=== PATIENT | female | born 1975 | race Caucasian/White ===

== ENCOUNTER → 2016-11-01 | Outpatient (CLI) | payer BC ==
[~2016-11-01] MED LIST: ALBINS/ INH; FEXO1TAB49 PO; FLNIN NAE; IPRA1AER2 INH; LEVO150T PO; LEVO175T3 PO; LORA-741 PO; MELO7.5T6 PO; METF-382 PO; MONT1TAB3 PO; OXYB10TA PO
== END | disposition home or self-care (01) ==
LOC: C.PAPS 12:23
PROVIDERS: ATTEND Obstetrics & Gynecology
DX: Z01.419 Encounter for gynecological examination (general) (routine) without abnormal findings (principal)

== ENCOUNTER → 2016-11-04 | Day surgery (SDC) | payer BC ==
[2016-10-25 13:39] VITALS: Ht 168.9 cm; Wt 77.3 kg
[~2016-11-04] VITALS: Ht 168.9 cm; Wt 77.3 kg
[~2016-11-04] MED LIST changes: +BUPIVACAINE 0.25% 2.5MG/ML PF 10 ML VIAL INFIL ONE; +LIDOCAINE HCL 1% MPF 5 ML VIAL ONE
--- NOTE | 2016-11-04 13:07 | History & Physical Bridge - [place] ---
H&P Re-Evaluation Bridge Note: I have examined the patient, reviewed the History & Physical and in the interval since the performance of the History & Physical I have noted the following changes of clinical significance: No changes noted
--- NOTE | 2016-11-04 13:52 | Discharge Instructions ---
Discharge Instructions Visit Reason for Visit: Low Back Pain Discharge Discharge Diagnosis / Problem: low back pain Discharge Goals Goal(s): Decrease discomfort, Improve function Activity Recommendations Activity Limitations: resume your previous activity Anesthesia . Post Anesthesia Instructions: If you have had General Anesthesia or IV Sedation: * Do not drive today. * Resume driving when surgeon permits. * Do not make important decisions or sign legal documents today. * Call surgeon for: 1. Temperature elevations greater than 101 degrees F. 2. Uncontrollable pain. 3. Excessive bleeding. 4. Persistent nausea and vomiting. 5. Medication intolerance (nausea, vomiting or rash). * For nausea and vomiting use only clear liquids such as: tea, soda, bouillon until nausea subsides, then gradually increase diet as tolerated. * If you have any concerns or questions, call your surgeon's office. If physician is unavailable and it is an emergency, call 911 or go to the nearest emergency room. . Diet Recommendations Recommended Home Diet: resume previous diet Procedures Procedures Performed: Right L5-S1 Radio Frequency Denervation Pending Studies Studies pending at discharge: no Medical Emergencies . Who to Call and When: Medical Emergencies: If at any time you feel your situation is an emergency, please call 911 immediately. . Non-Emergent Contact Non-Emergency issues call your: Specialist . . "Provider Documentation" section prepared by Twin Carlin.
[2016-11-04 13:58] VITALS: BP 151/93; PULSE 92; O2SAT 98
--- NOTE | 2016-11-04 15:41 | OPERATIVE REPORT ---
DATE OF OPERATION: 11/04/2016 PREOPERATIVE DIAGNOSIS: Right L5-S1 facet arthropathy with chronic low back pain. POSTOPERATIVE DIAGNOSIS: Same. PROCEDURE: Right L5-S1 radiofrequency denervation. SURGEON: Dr. Twin Carlin. INDICATIONS: The patient is a 41-year-old white female who has had a series of 2 successful medial branch blocks done to this area with overall pain improvements of 70%. She presents today for denervation to provide her with a longer lasting relief of pain in this area and region. PHYSICAL EXAMINATION: GENERAL: Pleasant female seated comfortably. MUSCULOSKELETAL: Lumbar paraspinal muscles were palpated and noted be nontender. She had some mild discomfort to palpation in the right L5-S1 facet area which was worse with extension and rotation. She had normal motor and sensory examinations of her lower extremities. CONSENT: Verbal and written consent was obtained from the patient. Risks and benefits were reviewed. Risks include but are not limited to abscess, allergic reaction and denervation. She wishes to proceed. PROCEDURE: The patient was taken back to the special procedures room of the [facility] where she was maintained in a prone position. Backside was cleansed with Betadine x3 and a dry sterile dressing was applied. Fluoroscope was used to identify the right L5 transverse process junction and the right sacral ala. The overlying skin on both of these sites was anesthetized with 2.5 mL of lidocaine 1% with a 25 gauge 1.5-inch needle. She then underwent placement of a 22 gauge 10 cm Herber needle contacting the bony target at each area. Sensory stimulation was done at both sites noted to reproduce familiar pain and discomfort in the back at a threshold of 0.2 volts at both sites. Motor stimulation did not provoke any radiating pain or movement of the lower extremities but just robust paraspinal spasms. She then underwent anesthetization with 1 mL lidocaine 1% at both sites and then underwent denervation 100 seconds, 80 degrees x2 at each site and then this was followed by bupivacaine 0.25% 1 mL at each site. The procedure was well tolerated. DISPOSITION: 1. The patient is taken out into the discharge recovery area where she will be discharged home once discharge criteria have been met. 2. Follow up in the [facility] office in 2-4 weeks. I attest to the content of the Intraoperative Record and any orders documented therein. Any exceptio ns are noted below.
== END | disposition home or self-care (01) ==
LOC: X.SURG 12:16
PROVIDERS: ATTEND Physical Medicine & Rehabilitation
DX: M46.96 Unspecified inflammatory spondylopathy, lumbar region (principal); M54.5 Low back pain

== ENCOUNTER → 2016-12-31 | Outpatient (CLI) | payer BC ==
[~2016-12-31] MED LIST changes: -BUPIVACAINE 0.25% 2.5MG/ML PF 10 ML VIAL INFIL ONE; -LIDOCAINE HCL 1% MPF 5 ML VIAL ONE
--- NOTE | 2016-12-31 15:35 | MAMMOGRAPHY REPORT ---
BILATERAL DIGITAL SCREENING MAMMOGRAM TOMOSYNTHESIS WITH CAD: 12/31/2016 CLINICAL HISTORY: Routine screening. Patient has no complaints. TECHNIQUE: Breast tomosynthesis in addition to standard 2D mammography was performed. Current study was also evaluated with a Computer Aided Detection (CAD) system. COMPARISON: Comparison is made to exams dated: 07/31/2014 ultrasound, 07/31/2014 mammogram, 06/12/2014 ultrasound, and 06/12/2014 mammogram - [facility]. BREAST COMPOSITION: There are scattered areas of fibroglandular density in both breasts. FINDINGS: No suspicious masses, calcifications, or areas of architectural distortion are noted in e ither breast. There has been no significant interval change compared to prior exams. IMPRESSION: ACR BI-RADS CATEGORY 1: NEGATIVE There is no mammographic evidence of malignancy. A 1 year screening mammogram is recommended. The p atient will receive written notification of the results. Approximately 10% of breast cancers are not detected with mammography. A negative mammographic repor t should not delay biopsy if a clinically suggestive mass is present. Shannon Tuttle M.D. ah/:12/31/2016 15:06:47 Lacquer Shader: Shikha Busby RT(R)(M), [facility] letter sent: Normal 1/2 BI-RADS Code: ACR BI-RADS Category 1: Negative
== END | disposition home or self-care (01) ==
LOC: C.MAMM 09:49
PROVIDERS: ATTEND Obstetrics & Gynecology
DX: Z12.31 Encounter for screening mammogram for malignant neoplasm of breast (principal)

== ENCOUNTER → 2017-01-03 | Outpatient (CLI) | payer BC ==
--- NOTE | 2017-01-03 10:07 | DIAGNOSTIC IMAGING REPORT ---
RIGHT SHOULDER 3 VIEWS HISTORY: RIGHT SHOULDER PAIN Right COMPARISON: None. FINDINGS: There is no fracture or dislocation. Soft tissues are unremarkable. No radiopaque foreign bodies. The right clavicle is intact. Tiny ossific density adjacent to the coracoid process is of doubtful clinical significance. Cartilage spaces are maintained for age. IMPRESSION: No fracture or dislocation within the right shoulder. Electronically signed by: Michael Bruce M.D. 01/03/2017 10:04 AM Dictated Date/Time: 01/03/2017 10:03 AM
== END | disposition home or self-care (01) ==
LOC: C.RDSM 09:25
PROVIDERS: ATTEND Physician Assistant
DX: M25.511 Pain in right shoulder (principal)

== ENCOUNTER → 2017-02-15 | Outpatient (CLI) | payer BC ==
[2017-02-15 18:26] LABS: LYME DISEASE AB IGG POS (NEG); LYME DISEASE AB IGM POS (NEG)
[2017-02-20 23:28] LABS: 18KDIGG BAND NONREACTIVE (NONREACTIVE); 23KDIGG BAND REACTIVE (NONREACTIVE); 23KDIGM BAND REACTIVE (NONREACTIVE); 28KDIGG BAND NONREACTIVE (NONREACTIVE); 30KDIGG BAND NONREACTIVE (NONREACTIVE); 39KDIGG BAND NONREACTIVE (NONREACTIVE); 39KDIGM BAND NONREACTIVE (NONREACTIVE); 41KDIGG BAND REACTIVE (NONREACTIVE); 41KDIGM BAND REACTIVE (NONREACTIVE); 45KDIGG BAND REACTIVE (NONREACTIVE); 58KDIGG BAND REACTIVE (NONREACTIVE); 66KDIGG BAND NONREACTIVE (NONREACTIVE); 93KDIGG BAND NONREACTIVE (NONREACTIVE)
== END | disposition home or self-care (01) ==
LOC: C.LAB1850 13:55
PROVIDERS: ATTEND Internal Medicine Infectious Disease
DX: L03.115 Cellulitis of right lower limb (principal)

== ENCOUNTER → 2017-05-12 | Outpatient (CLI) | payer BC ==
[2017-05-12 17:43] LABS: BASO % 0.4 %; BASO ABS # 0.03 K/uL (0-0.2); COMPLETE YES; HEMATOCRIT 38.9 % (37-47); IG% 0.3 %; LYMPH % 29.9 %; LYMPH ABS # 2.29 K/uL (1.2-3.4); MEAN CELL VOLUME 79.7 fL (80-100); MEAN CORPUSCULAR HEMOGLOBIN 25.8 pg (25-34); MEAN CORPUSCULAR HGB CONC 32.4 g/dl (32-36); MEAN PLATELET VOLUME 9.6 fL (7.4-10.4); MONO % 5.3 %; NEUT % 62.1 %; PLATELET COUNT 281 K/uL (130-400); RED BLOOD COUNT 4.88 M/uL (4.2-5.4); WHITE BLOOD COUNT 7.67 K/uL (4.8-10.8)
[2017-05-12 18:09] LABS: BLOOD UREA NITROGEN 10 mg/dl (7-18); CALCIUM 9.3 mg/dl (8.5-10.1); CARBON DIOXIDE 28 mmol/L (21-32); CHLORIDE 104 mmol/L (98-107); CREATININE 0.68 mg/dl (0.60-1.20); GLUCOSE 99 mg/dl (70-99); POTASSIUM 3.9 mmol/L (3.5-5.1); SODIUM 139 mmol/L (136-145)
[2017-05-12 20:52] LABS: LYME DISEASE AB IGM NEG (NEG)
[2017-05-12 20:53] LABS: LYME DISEASE AB IGG POS (NEG)
[2017-05-17 21:22] LABS: 18KDIGG BAND NONREACTIVE (NONREACTIVE); 23KDIGG BAND REACTIVE (NONREACTIVE); 23KDIGM BAND REACTIVE (NONREACTIVE); 28KDIGG BAND NONREACTIVE (NONREACTIVE); 30KDIGG BAND NONREACTIVE (NONREACTIVE); 39KDIGG BAND REACTIVE (NONREACTIVE); 39KDIGM BAND NONREACTIVE (NONREACTIVE); 41KDIGG BAND REACTIVE (NONREACTIVE); 41KDIGM BAND REACTIVE (NONREACTIVE); 45KDIGG BAND REACTIVE (NONREACTIVE); 58KDIGG BAND REACTIVE (NONREACTIVE); 66KDIGG BAND NONREACTIVE (NONREACTIVE); 93KDIGG BAND NONREACTIVE (NONREACTIVE)
== END | disposition home or self-care (01) ==
LOC: C.LAB1850 16:39
PROVIDERS: ATTEND Nurse Practitioner Adult Health
DX: H02.401 Unspecified ptosis of right eyelid (principal)

== ENCOUNTER → 2017-05-25 | Outpatient (CLI) | payer BC ==
[~2017-05-25] MED LIST changes: +ACETAMINOPHEN 500 MG TAB PO ONE
--- NOTE | 2017-05-25 09:00 | DIAGNOSTIC IMAGING REPORT ---
BRAIN WITHOUT CONTRAST HISTORY: 42 years-old Female DROOPY EYELID RT, NEUROLOGIC IMPAIRMENT history of Lyme disease. COMPARISON: MRI brain 01/30/2015 TECHNIQUE: Multiplanar multisequence MRI of the brain was obtained without contrast. FINDINGS: Large [id number] images demonstrate no gross abnormality of the head or neck. There is no restricted diffusion to suggest acute ischemia. The midline structures including the corpus callosum, optic chiasm, pituitary gland, infundibulum, pineal gland and brainstem are unremarkable. There is no cerebellar tonsillar herniation. Mild uncovertebral spurring and facet arthrosis is seen within the imaged upper cervical spine, notably at C3-C4 on the right. No pathologic Blooming artifact seen on the gradient echo series to suggest hemorrhage. There is no acute intracranial hemorrhage, midline shift, hydrocephalus, intracranial mass or abnormal extra-axial collections. No focal abnormal T2/FLAIR signal. The flow voids at the level of the skull base appear patent. Mastoid air cells and middle ear cavities are clear. Orbits are symmetric. Minimal mucosal thickening of the ethmoid air cells is present. Calvarium and soft tissues are unremarkable. IMPRESSION: 1. No acute intracranial abnormality. No restricted diffusion. 2. If of further clinical concern for facial nerve neuritis to correlate with the patient's reported symptomatology, thin section MR images of the posterior fossa with and without IV contrast may be considered. The above report was generated using voice recognition software. It may contain grammatical, syntax or spelling errors. Electronically signed by: Miki Rosado M.D. 05/25/2017 8:59 AM Dictated Date/Time: 05/25/2017 8:52 AM
== END | disposition home or self-care (01) ==
LOC: C.MRI 07:55
PROVIDERS: ATTEND Nurse Practitioner Adult Health
DX: G96.9 Disorder of central nervous system, unspecified (principal); H02.401 Unspecified ptosis of right eyelid

== ENCOUNTER 2017-06-10 07:37 | Day surgery (SDC) | payer BC ==
[2017-06-10] VITALS (10 sets, daily range): BP systolic 109–144; BP diastolic 65–81; PULSE 68–93; TEMP 36.6–36.8; O2SAT 96–99; Ht 168.9 cm; Wt 77.0 kg
[~2017-06-10] VITALS: Ht 168.9 cm; Wt 77.0 kg
[~2017-06-10 07:37] MED LIST changes: -ACETAMINOPHEN 500 MG TAB PO ONE; -LEVO150T PO
[2017-06-10] MEDS ORDERED: LEVO150T PO (08:25)
[2017-06-10] MEDS ORDERED: ACETAMINOPHEN 500 MG TAB PO PRN (09:45)
--- NOTE | 2017-06-10 09:45 | Discharge Instructions ---
Discharge Instructions Procedure Procedure Date: Jun 10, 2017. Reason for visit: Lymes, Drooping Rt Eyelid, Neuro Impairment. Discharge Discharge Date: Jun 10, 2017. Discharge Diagnosis: Post lumbar puncture Instructions Activity Recommendations: 1 Day-May resume regular activity, 48 Hours of decreased exertion, 1 Day with no driving/machine use Return to School/Work: no limitations Recommended Home Diet: Resume Previous Diet Provider Instructions: Lumbar Puncture performed with Fluoroscopic guidance [ L45] level with [ 22] needle. No complications. Allergies Coded Allergies: Doxycycline (Verified Allergy, Unknown, HIVES, 06/10/17) Iodinated Diagnostic Agents (Verified Allergy, Unknown, ITCHING, 06/10/17) Sulfa Drugs (Verified Allergy, Unknown, HIVES, 06/10/17) [place] Recommendations: Call your doctor if: * Temperature above 101 degrees * Pain not relieved by pain medicine ordered * There is increased drainage or redness from any incision * You have any unanswered questions or concerns. Your Doctors Instructions noted above were prepared by provider Jony Ordaz. Patient Signature Section: Patient Instructions Signature Page Freya Mcrae Patient (or Guardian) Signature/Date: I have read and understand the instructions given to me by my caregivers. Caregiver/RN/Doctor Signature/Date: The above-named patient and/or guardian has received patient instructions on this date. + Original Patient Signature Page (only) stays with chart. Please make copy for patient.
--- NOTE | 2017-06-10 09:52 | DIAGNOSTIC IMAGING REPORT ---
LUMBAR PUNCTURE DIAGNOSTIC CLINICAL HISTORY: md ordered mental status change FLUOROSCOPY TIME: 6 seconds PROCEDURE: The procedure, risks and benefits were discussed with the patient including the risk of spinal headache, bleeding and infection. The patient agreed to the procedure and informed written consent was obtained. The procedure was performed by Dr. Ordaz following a timeout. The L4-L5 interlaminar space was targeted. Skin overlying the space was prepped and draped in the usual sterile fashion and local anesthesia was achieved with 1% lidocaine. Under intermittent fluoroscopic guidance, a 22 x 3 1/2 in. Sprotte needle was inserted into the thecal sac. A total of 9cc of clear, colorless cerebral spinal fluid was obtained and spread amongst 4 vials. The patient tolerated the procedure well. There were no immediate complications. The specimens were sent to the laboratory at the request of the referring physician. Opening pressure 9 mmHg IMPRESSION: Successful fluoroscopic guided lumbar puncture with removal of 9 cc of clear, colorless cerebral spinal fluid. No immediate complications. Opening pressure 9 mmHg The above report was generated using voice recognition software. It may contain grammatical, syntax or spelling errors. Electronically signed by: Jony Ordaz M.D. 06/10/2017 9:50 AM Dictated Date/Time: 06/10/2017 9:45 AM
[2017-06-10 10:37] LABS: CSF TOTAL PROTEIN 43.5 mg/dl (15.0-45.0)
[2017-06-10 10:44] LABS: CSF APPEARANCE CLEAR; CSF COLOR COLORLESS; CSF XANTHOCHROMIC NO XANTHOCHROMIA
[2017-06-14 17:31] LABS: 18KDIGG BAND NONREACTIVE (NONREACTIVE); 23KDIGG BAND REACTIVE (NONREACTIVE); 23KDIGM BAND REACTIVE (NONREACTIVE); 28KDIGG BAND NONREACTIVE (NONREACTIVE); 30KDIGG BAND NONREACTIVE (NONREACTIVE); 39KDIGG BAND REACTIVE (NONREACTIVE); 39KDIGM BAND NONREACTIVE (NONREACTIVE); 41KDIGG BAND REACTIVE (NONREACTIVE); 41KDIGM BAND REACTIVE (NONREACTIVE); 45KDIGG BAND NONREACTIVE (NONREACTIVE); 58KDIGG BAND REACTIVE (NONREACTIVE); 66KDIGG BAND NONREACTIVE (NONREACTIVE); 93KDIGG BAND NONREACTIVE (NONREACTIVE)
== END 2017-06-10 13:50 | disposition home or self-care (01) ==
LOC: C.ACU 07:37
PROVIDERS: ATTEND Internal Medicine
DX: A69.20 Lyme disease, unspecified (principal); H02.89 Other specified disorders of eyelid

== ENCOUNTER 2017-06-23 19:21 | Emergency (ER) | payer BC ==
[~2017-06-23] VITALS: Ht 168.9 cm; Wt 83.9 kg
[~2017-06-23 19:21] MED LIST changes: +LEVO150T PO; -LEVO175T3 PO
[2017-06-23 19:26] VITALS: TEMP 36.8; Ht 168.9 cm; Wt 83.9 kg
--- NOTE | 2017-06-23 19:56 | EMERGENCY ROOM VISIT NOTE ---
History First contact with patient: 19:31 Chief Complaint: CHEST PAIN Stated Complaint: CHEST PAIN Nursing Triage Summary: Got PICC line last Tuesday for IV Rocephin for Lyme disease, has had pressure in chest since, but starting last night has had more sharp pain in the chest. Also mild dyspnea. History of Present Illness The patient is a 42 year old female who presents to the Emergency Room with complaints of chest pain which started the night prior. 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 She was placed on amoxil as she was allergic to doxycyline however she had ongoing joint and neurological symptoms. An oupt LP was done and lyme was diagnosed. She had a PICC placed approx a week prior in the right extremity for IV Rocephin therapy. She notes that after the PICC was placed she noted chest tightness but never had any pain. Last night was the first time she started to suffer from 7/10 sharp intermittent chest pain. It can radiate to the back as well and into the left chest. She denies any nausea or diaphoresis associated with it. She notes some SOB with exertion. The pain can be aggravated by deep breathing. She does not use OCP ( history of hysterectomy), no history of DVT or PE and does not suffer from any lower extremity pain or hemoptysis. She has no cardiac history and no history of TIA or CVA. Non smoker. Review of Systems A 10 point review of systems was completed and negative aside from above Past Medical/Surgical History Medical Problems: (1) Asthma (2) Gestational diabetes mellitus Family History FHx: myocardial infarction GRANDFATHER Social History Smoking Status: Never Smoker Alcohol Use: occasionally Drug Use: none Marital Status: Housing Status: lives with family Occupation Status: employed Current/Historical Medications Scheduled Fexofenadine Hcl (Falguni Allergy), 1 TAB PO QAM Fluticasone Propionate (Flonase Nasal [place]), 1-2 SPRAY NELLY DAILY PRN Levothyroxine Sodium (Synthroid), 1 TAB PO DAILY Meloxicam (Mobic), 7.5 MG PO QAM Metformin Ext Rel (Glucophage Ext Rel), 500 MG PO BID Montelukast Sodium (Singulair), 10 MG PO QAM Oxybutynin Chloride Er (Ditropan Xl), 15 MG PO QAM Scheduled PRN Albuterol Sulf (Proventil 0.083% 2.5MG/3ML), 2.5 MG INH QID PRN for SOB/Wheezing Ipratropium-Albuterol (Combivent Respimat), 1 PUFFS INH QID PRN for Shortness of Breath Lorazepam (Ativan), 0.5 MG PO Q4H PRN for Anxiety Physical Exam Vital Signs Date Time Temp Pulse Resp B/P (MAP) Pulse Ox O2 Delivery O2 Flow Rate FiO2 06/23/17 21:17 84 06/23/17 20:06 81 21 97 06/23/17 20:01 156/92 06/23/17 19:51 80 15 99 06/23/17 19:36 160/95 06/23/17 19:26 36.8 84 16 173/95 97 Room Air Physical Exam General: ambulatory, not in acute distress Skin: no rashes noted, no suspicious lesions, no areas of inflammations/ lacerations/ erythema noted CVS: S1/ S2 noted, RRR, no rubs/ murmurs noted, no cyanosis, PICC noted on right UE RVS: Clear throughout bilaterally, not in acute respiratory distress, no wheezing/ rales/ crackles noted ENT: no erythema/ injection/ ulcerations noted in the pharynx, no lymphadenopathy Neck: inspection WNL, full ROM of neck ABD: BSx4, minimal pain/ tenderness on palpation, no organomegaly, negative murphys, psoas, Rovsing, CVA tenderness MSK: inspection of all limbs WNL, motor and sensation intact in all limbs, no swelling/ pain on palpation of joints NVS: PERRL, EOMI, sensation intact in all extremities Lymph: No lymphadenopathy palpable Medical Decision & Procedures ER Provider Diagnostic Interpretation: [~ rep ct add3]] CHEST ONE VIEW PORTABLE HISTORY: Atypical chest pain COMPARISON: Chest 10/06/2012. FINDINGS: A right PICC terminates in the SVC. The heart is normal in size. A few linear densities the right lung base may represent prominent vascular markings or atelectasis. Otherwise, no focal lung consolidations to suggest pneumonia. No evidence for pulmonary edema. No pleural effusions. No pneumothorax. IMPRESSION: A few linear densities at the right lung base favor subsegmental atelectasis or prominent vascular markings. Otherwise, no acute process within the chest. The right PICC terminates in the SVC. Laboratory Results 06/23/17 19:55 Red Blood Count 4.88, Mean Corpuscular Volume 79.1, Mean Corpuscular Hemoglobin 25.2, Mean Corpuscular Hemoglobin Concent 31.9, Mean Platelet Volume 9.0, Neutrophils (%) (Auto) 63.0, Lymphocytes (%) (Auto) 27.7, Monocytes (%) (Auto) 6.4, Eosinophils (%) (Auto) 2.3, Basophils (%) (Auto) 0.4, Neutrophils # (Auto) 5.76, Lymphocytes # (Auto) 2.53, Monocytes # (Auto) 0.59, Eosinophils # (Auto) 0.21, Basophils # (Auto) 0.04 06/23/17 19:55 Test 06/23/17 19:34 06/23/17 19:55 06/23/17 21:22 Creatine Kinase MB Ratio (0-3.0) White Blood Count 9.15 K/uL (4.8-10.8) Red Blood Count 4.88 M/uL (4.2-5.4) Hemoglobin 12.3 g/dL (12.0-16.0) Hematocrit 38.6 % (37-47) Mean Corpuscular Volume 79.1 fL (80-100) Mean Corpuscular Hemoglobin 25.2 pg (25-34) Mean Corpuscular Hemoglobin Concent 31.9 g/dl (32-36) Platelet Count 242 K/uL (130-400) Mean Platelet Volume 9.0 fL (7.4-10.4) Neutrophils (%) (Auto) 63.0 % Lymphocytes (%) (Auto) 27.7 % Monocytes (%) (Auto) 6.4 % Eosinophils (%) (Auto) 2.3 % Basophils (%) (Auto) 0.4 % Neutrophils # (Auto) 5.76 K/uL (1.4-6.5) Lymphocytes # (Auto) 2.53 K/uL (1.2-3.4) Monocytes # (Auto) 0.59 K/uL (0.11-0.59) Eosinophils # (Auto) 0.21 K/uL (0-0.5) Basophils # (Auto) 0.04 K/uL (0-0.2) RDW Standard Deviation 38.5 fL (36.4-46.3) RDW Coefficient of Variation 13.5 % (11.5-14.5) Immature Granulocyte % (Auto) 0.2 % Immature Granulocyte # (Auto) 0.02 K/uL (0.00-0.02) Anion Gap 8.0 mmol/L (3-11) Est Creatinine Clear Calc Drug Dose 106.6 ml/min Estimated GFR () 113.1 Estimated GFR (Non- 97.6 BUN/Creatinine Ratio 21.7 (10-20) Calcium Level 9.4 mg/dl (8.5-10.1) Magnesium Level 2.0 mg/dl (1.8-2.4) Total Bilirubin 0.1 mg/dl (0.2-1) Aspartate Amino Transf (AST/SGOT) 16 U/L (15-37) Alanine Aminotransferase (ALT/SGPT) 36 U/L (12-78) Alkaline Phosphatase 74 U/L (45-117) Creatine Kinase MB 0.6 ng/ml (0.5-3.6) Troponin I < 0.015 ng/ml (0-0.045) Total Protein 7.1 gm/dl (6.4-8.2) Albumin 3.6 gm/dl (3.4-5.0) Globulin 3.5 gm/dl (2.5-4.0) Albumin/Globulin Ratio 1.0 (0.9-2) Lipase 215 U/L (73-393) Urine Color YELLOW Urine Appearance CLEAR (CLEAR) Urine pH 6.0 (4.5-7.5) Urine Specific [place] 1.013 (1.000-1.030) Urine Protein NEG (NEG) Urine Glucose (UA) NEG (NEG) Urine Ketones NEG (NEG) Urine Occult Blood 2+ (NEG) Urine Nitrite NEG (NEG) Urine Bilirubin NEG (NEG) Urine Urobilinogen NEG (NEG) Urine Leukocyte Esterase NEG (NEG) Urine WBC (Auto) 0 /hpf (0-5) Urine RBC (Auto) 5-10 /hpf (0-4) Urine Hyaline Casts (Auto) 0 /lpf (0-5) Urine Epithelial Cells (Auto) 20-30 /lpf (0-5) Urine Bacteria (Auto) NEG (NEG) Medications Administered Medications (Trade) Dose Ordered Sig/Leidy Route Start Time Stop Time Status Last Admin Dose Admin Lidocaine HCl (Viscous Lidocaine 2% Soln) 20 ml STK-MED ONCE .ROUTE 06/23/17 21:05 06/23/17 21:06 DC 06/23/17 21:07 20 ML Al Hydroxide/Mg Hydroxide (Maalox Susp) 30 ml STK-MED ONCE .ROUTE 06/23/17 21:05 06/23/17 21:06 DC 06/23/17 21:08 30 ML ECG Indication: chest pain Rhythm: normal sinus Findings: no acute ischemic change, no ectopy Change: no significant change ED Course 1944: Patient was assessed by resident and 2030: GI cocktail was administered 2129: No improvement in pain with chest pain with GI Cocktail, results of labs and imaging discussed 2149: Plan for discharge, patient was agreeable Medical Decision Differential diagnosis: Etiologies such as cardiac ischemia, aortic dissection, pulmonary embolism, pneumonia, pneumothorax, musculoskeletal, infections, pericarditis, myocarditis , esophageal rupture, gastrointestinal, as well as others were entertained. Patient was assessed for chest pain rule out. A Ddimer was deferred for assessment of PE as the patient's well's criteria was 0. A troponin was negative which is reassuring considering the length of the time the patient has been suffering from the chest pain as if it was ischemic you would expect some elevation in troponin. CBC was negative for leukocytosis or anemia. CMP did not reveal any acute processes. PICC was in correct place and CXR did not reveal any consolidation. An echo was done at the bedside and no fluid was noted around the heart and no concerning changes for ischemia noted. As w/u was WNL discussed close follow up with PCP. Patient was agreeable with discharge and plan. Blood Pressure Screening Patient's blood pressure: Elevated blood pressure Blood pressure disposition: Referred to PCP Impression Primary Impression: Substernal precordial chest pain Departure Information Dispostion Home / Self-Care Condition GOOD Referrals Pro,[place] M.D. (PCP) Patient Instructions Formerly [facility], [facility]
[2017-06-23 20:19] LABS: BASO % 0.4 %; BASO ABS # 0.04 K/uL (0-0.2); COMPLETE YES; EOS % 2.3 %; HEMATOCRIT 38.6 % (37-47); IG% 0.2 %; LYMPH % 27.7 %; LYMPH ABS # 2.53 K/uL (1.2-3.4); MEAN CELL VOLUME 79.1 fL (80-100); MEAN CORPUSCULAR HEMOGLOBIN 25.2 pg (25-34); MEAN CORPUSCULAR HGB CONC 31.9 g/dl (32-36); MONO % 6.4 %; PLATELET COUNT 242 K/uL (130-400); RED BLOOD COUNT 4.88 M/uL (4.2-5.4); WHITE BLOOD COUNT 9.15 K/uL (4.8-10.8)
[2017-06-23 20:43] LABS: ALT/SGPT 36 U/L (12-78); BLOOD UREA NITROGEN 16 mg/dl (7-18); BUN/CREATININE RATIO 21.7 (10-20); CALCIUM 9.4 mg/dl (8.5-10.1); CARBON DIOXIDE 26 mmol/L (21-32); CHLORIDE 105 mmol/L (98-107); CREATININE 0.75 mg/dl (0.60-1.20); GLUCOSE 104 mg/dl (70-99); POTASSIUM 3.8 mmol/L (3.5-5.1); SODIUM 139 mmol/L (136-145)
[2017-06-23 20:48] LABS: ALKALINE PHOSPHATASE 74 U/L (45-117); AST/SGOT 16 U/L (15-37)
--- NOTE | 2017-06-23 20:56 | DIAGNOSTIC IMAGING REPORT ---
CHEST ONE VIEW PORTABLE HISTORY: Atypical chest pain COMPARISON: Chest 10/06/2012. FINDINGS: A right PICC terminates in the SVC. The heart is normal in size. A few linear densities the right lung base may represent prominent vascular markings or atelectasis. Otherwise, no focal lung consolidations to suggest pneumonia. No evidence for pulmonary edema. No pleural effusions. No pneumothorax. IMPRESSION: A few linear densities at the right lung base favor subsegmental atelectasis or prominent vascular markings. Otherwise, no acute process within the chest. The right PICC terminates in the SVC. Electronically signed by: Michael Bruce M.D. 06/23/2017 8:54 PM Dictated Date/Time: 06/23/2017 8:53 PM
[2017-06-23] MEDS ORDERED: ALUMINUM/MAGNESIUM SUSP 30 ML UDC ONE (21:05)
[2017-06-23] MEDS ORDERED: LIDOCAINE HCL 2% VISC SOLN 20 ML UDC ONE (21:05)
[2017-06-23] MEDS ORDERED: GI COCKTAIL PO ONE (21:15)
[2017-06-23 21:41] LABS: URINE APPEARANCE CLEAR (CLEAR); URINE BILIRUBIN NEG (NEG); URINE COLOR YELLOW; URINE EPITHELIAL CELL AUTO 20-30 /lpf (0-5); URINE NITRITE NEG (NEG); URINE SPECIFIC GRAVITY 1.013 (1.000-1.030); UROBILINOGEN NEG (NEG); ZZUR CULT IF INDIC CLEAN CATCH NO
[2017-06-23 21:42] LABS: MANUAL MICROSCOPIC REQUIRED? NO; REVIEW REQ? NO
[2017-06-23 22:01] VITALS: BP 143/85
[2017-06-23 22:11] VITALS: PULSE 80; O2SAT 98
--- NOTE | 2017-06-24 02:52 | EMERGENCY ROOM VISIT NOTE ---
ED Visit Note First contact with patient: 19:31 HPI: constant CP since last night in the setting of outpatient management of CSF + Lyme disease. PE: AFVSS, NAD NC/AT RRR, no murmurs CTAB Abd soft NT/ND Ext: no edema, erythema Neuro: grossly intact Plan: Labs, CXR unremarkable. Trop negative in the setting of >6 hours of constant sx, ACS not likely. Bedside echo negative for pericardial effusion. EKG unremarkable without [place] depressions or TEMO. Pericarditis/myocarditis not likely. Plan for pcp f/u. I reviewed the patient's past medical history, medications, and visit nursing notes. I discussed the case with the resident physician, examined the patient, and agree with the findings and plan as documented in the residents note unless otherwise clarified here by me.
== END 2017-06-23 22:23 | disposition home or self-care (01) ==
LOC: C.EDB 19:22 → C.EDC 22:23
DX: R07.2 Precordial pain (principal); J45.909 Unspecified asthma, uncomplicated

== ENCOUNTER → 2017-07-04 | Outpatient (CLI) | payer BC ==
[2017-07-04 18:16] LABS: BASO % 0.6 %; BASO ABS # 0.04 K/uL (0-0.2); COMPLETE YES; EOS % 4.7 %; HEMATOCRIT 38.4 % (37-47); IG% 0.3 %; LYMPH % 33.1 %; LYMPH ABS # 2.17 K/uL (1.2-3.4); MEAN CELL VOLUME 78.5 fL (80-100); MEAN CORPUSCULAR HGB CONC 33.1 g/dl (32-36); MEAN PLATELET VOLUME 9.5 fL (7.4-10.4); MONO % 4.9 %; NEUT % 56.4 %; PLATELET COUNT 226 K/uL (130-400); RED BLOOD COUNT 4.89 M/uL (4.2-5.4); WHITE BLOOD COUNT 6.56 K/uL (4.8-10.8)
[2017-07-04 18:35] LABS: BLOOD UREA NITROGEN 17 mg/dl (7-18); BUN/CREATININE RATIO 16.8 (10-20); CALCIUM 9.1 mg/dl (8.5-10.1); CARBON DIOXIDE 23 mmol/L (21-32); CHLORIDE 106 mmol/L (98-107); CREATININE 0.99 mg/dl (0.60-1.20); GLUCOSE 123 mg/dl (70-99); POTASSIUM 4.2 mmol/L (3.5-5.1); SODIUM 138 mmol/L (136-145)
== END | disposition home or self-care (01) ==
LOC: C.LABSPEC 16:07
PROVIDERS: ATTEND Internal Medicine
DX: A69.20 Lyme disease, unspecified (principal)

== ENCOUNTER → 2017-07-14 | Outpatient (CLI) | payer BC ==
[2017-07-14 14:37] LABS: ALT/SGPT 22 U/L (12-78); AST/SGOT 10 U/L (15-37); BLOOD UREA NITROGEN 10 mg/dl (7-18); CARBON DIOXIDE 25 mmol/L (21-32); CHLORIDE 107 mmol/L (98-107); CREATININE 0.62 mg/dl (0.60-1.20); GLUCOSE 98 mg/dl (70-99); POTASSIUM 4.1 mmol/L (3.5-5.1); SODIUM 139 mmol/L (136-145)
[2017-07-14 14:48] LABS: ALKALINE PHOSPHATASE 74 U/L (45-117); C-REACTIVE PROTEIN 1.17 mg/dl (0-0.29); THYROID STIMULATING HORMONE 0.011 uIu/ml (0.300-4.500)
[2017-07-18 18:36] LABS: ANAPLASMA PHAGOCYTOPHIL IGG <1:64 (<1:64); ANAPLASMA PHAGOCYTOPHIL IGM <1:20 (<1:20); EHRLICHIA CHAFF IGG AB <1:64 (<1:64); EHRLICHIA CHAFF IGM AB <1:20 (<1:20)
== END | disposition home or self-care (01) ==
LOC: C.LABSPEC 14:07
PROVIDERS: ATTEND Internal Medicine
DX: A69.20 Lyme disease, unspecified (principal)

== ENCOUNTER → 2017-09-22 | Outpatient (CLI) | payer BC ==
[2017-09-22 13:08] LABS: BASO % 0.5 %; BASO ABS # 0.03 K/uL (0-0.2); COMPLETE YES; EOS % 1.8 %; HEMATOCRIT 39.9 % (37-47); IG% 0.5 %; LYMPH % 28.4 %; LYMPH ABS # 1.71 K/uL (1.2-3.4); MEAN CELL VOLUME 81.6 fL (80-100); MEAN CORPUSCULAR HEMOGLOBIN 26.2 pg (25-34); MEAN CORPUSCULAR HGB CONC 32.1 g/dl (32-36); MEAN PLATELET VOLUME 9.2 fL (7.4-10.4); MONO % 4.5 %; NEUT % 64.3 %; PLATELET COUNT 256 K/uL (130-400); RED BLOOD COUNT 4.89 M/uL (4.2-5.4); WHITE BLOOD COUNT 6.03 K/uL (4.8-10.8)
[2017-09-22 13:39] LABS: BLOOD UREA NITROGEN 9 mg/dl (7-18); BUN/CREATININE RATIO 14.5 (10-20); CALCIUM 8.7 mg/dl (8.5-10.1); CARBON DIOXIDE 30 mmol/L (21-32); CHLORIDE 105 mmol/L (98-107); CREATININE 0.62 mg/dl (0.60-1.20); GLUCOSE 94 mg/dl (70-99); SODIUM 137 mmol/L (136-145)
[2017-09-23 06:29] LABS: ESTIMATED AVERAGE GLUCOSE 131 mg/dl; HA1C FLAG Normal (Normal)
== END | disposition home or self-care (01) ==
LOC: C.LAB1850 12:16
PROVIDERS: ATTEND Internal Medicine
DX: E03.9 Hypothyroidism, unspecified (principal); A69.20 Lyme disease, unspecified; R73.03 Prediabetes

== ENCOUNTER → 2018-01-06 | Outpatient (CLI) | payer OTHER ==
--- NOTE | 2018-01-09 07:44 | MAMMOGRAPHY REPORT ---
BILATERAL DIGITAL SCREENING MAMMOGRAM TOMOSYNTHESIS WITH CAD: 01/06/2018 CLINICAL HISTORY: Routine screening. Patient has no complaints. TECHNIQUE: Breast tomosynthesis in addition to standard 2D mammography was performed. Current study was also evaluated with a Computer Aided Detection (CAD) system. COMPARISON: Comparison is made to exams dated: 12/31/2016 mammogram, 07/31/2014 ultrasound, 07/31/2014 m ammogram, 06/12/2014 ultrasound, and 06/12/2014 mammogram - [facility]. BREAST COMPOSITION: There are scattered areas of fibroglandular density in both breasts. FINDINGS: No suspicious masses, calcifications, or areas of architectural distortion are noted in ei ther breast. There has been no significant interval change compared to prior exams. IMPRESSION: ACR BI-RADS CATEGORY 1: NEGATIVE There is no mammographic evidence of malignancy. A 1 year screening mammogram is recommended. The pa tient will receive written notification of the results. Approximately 10% of breast cancers are not detected with mammography. A negative mammographic report should not delay biopsy if a clinically suggestive mass is present. Shannon Tuttle M.D. /:01/06/2018 15:19:16 Relay Tester: Vale CONNER(Abdirashid)(M), [facility] letter sent: Normal 1/2 BI-RADS Code: ACR BI-RADS Category 1: Negative
== END | disposition home or self-care (01) ==
LOC: C.MAMM 08:27
PROVIDERS: ATTEND Obstetrics & Gynecology
DX: Z12.31 Encounter for screening mammogram for malignant neoplasm of breast (principal)